=== PATIENT | female | born 1945 | race Caucasian/White ===

== ENCOUNTER 2017-03-21 23:20 | Inpatient (IN) | payer MEDICARE ==
[~2017-03-21] VITALS: Ht 162.6 cm; Wt 55.5 kg
[2017-03-21] MEDS ORDERED: LEVOTHYROXIN25 MC1 PO (23:40)
[2017-03-22 00:48] LABS: HEMATOCRIT 38.1 % (37.0-47.0); HEMOGLOBIN 13.9 g/dl (12.0-16.0); IMMATURE GRANULOCYTES 0.4 % (0.0-1.0); MEAN CELL VOLUME 85.4 fL CALC (80.0-100.0); MEAN CORPUSCULAR HGB 31.2 pG CALC (26.0-32.0); MEAN CORPUSCULAR HGB CONC 36.5 g/L CALC (32.0-36.0); NEUT# 4.21 thou/uL (2.00-7.15); RED BLOOD COUNT 4.46 mill/uL (4.20-5.60); RED CELL DISTRI WIDTH 11.6 % (11.5-15.5)
[2017-03-22 01:04] LABS: ALBUMIN 4.2 g/dL (3.2-5.0); ALKALINE PHOSPHATASE 67 u/l (38-126); AMYLASE 35 u/l (30-110); BILIRUBIN, TOTAL 0.8 mg/dL (0.0-1.4); BUN 10 mg/dL (8-23); BUN/CREATININE RATIO 20 (12-20 (CALC)); CALCIUM 8.7 mg/dL (8.4-10.2); CARBON DIOXIDE 23 mmol/l (22-30); CHLORIDE 83 mmol/l (95-108); CREATININE 0.5 mg/dL (0.5-1.0); GFR > 60 ML/MIN (>=60 (CALC)); GFR FOR AFR.AMER. > 60 ML/MIN (>=60 (CALC)); GLUCOSE 141 mg/dL (82-115); LIPASE 53 u/l (23-300); SGOT/AST 46 u/l (9-36); SGPT/ALT 46 u/l (11-66); TOTAL PROTEIN 6.7 g/dL (6.3-8.2)
[2017-03-22 01:09] LABS: ANION GAP 16 (6-22 (CALC)); SODIUM 118 mmol/l (137-146)
[2017-03-22 01:52] LABS: URINE BILIRUBIN - DIPSTICK NEGATIVE (NEGATIVE); URINE BLOOD DIPSTICK SMALL (NEGATIVE); URINE COLOR YELLOW; URINE GLUCOSE - DIPSTICK NEGATIVE (NEGATIVE); URINE KETONE NEGATIVE (NEGATIVE); URINE LEUK ESTERASE NEGATIVE (NEGATIVE); URINE NITRITE - DIPSTICK NEGATIVE (Negative); URINE PROTEIN - DIPSTICK NEGATIVE (NEG-TRACE); URINE UROBILINOGEN - DIPSTICK 0.2 E.U./dL (0.2)
[2017-03-22 01:53] LABS: URINE CLARITY CLEAR
[2017-03-22 02:03] LABS: TSH, 3RD GENERATION 4.49 uIU/mL (0.47 - 4.68)
[2017-03-22 02:05] LABS: URINE SQUAMOUS EPITHELIAL CELL RARE EPI/hpf (0-FEW); URINE WBC 0-2 WBC/hpf (0-5)
[2017-03-22 02:20] VITALS: BP 132/59
[2017-03-22 06:09] VITALS: BP 106/53
[2017-03-22 06:57] LABS: HEMATOCRIT 38.2 % (37.0-47.0); HEMOGLOBIN 13.6 g/dl (12.0-16.0); IMMATURE GRANULOCYTES 0.5 % (0.0-1.0); MEAN CELL VOLUME 87.2 fL CALC (80.0-100.0); MEAN CORPUSCULAR HGB 31.1 pG CALC (26.0-32.0); MEAN CORPUSCULAR HGB CONC 35.6 g/L CALC (32.0-36.0); NEUT# 3.42 thou/uL (2.00-7.15); RED BLOOD COUNT 4.38 mill/uL (4.20-5.60); RED CELL DISTRI WIDTH 11.8 % (11.5-15.5)
[2017-03-22 07:16] LABS: POTASSIUM 3.5 mmol/l (3.5-5.1)
[2017-03-22 10:00] VITALS: BP 116/50
[2017-03-22 11:58] LABS: INFLUENZA A NONE DETECTED (NONE DETECT); INFLUENZA B NONE DETECTED (NONE DETECT)
[2017-03-22 13:45] LABS: POTASSIUM 3.6 mmol/l (3.5-5.1)
[2017-03-22 16:02] VITALS: BP 130/64
[2017-03-22 20:31] VITALS: BP 106/63
[2017-03-23 00:15] VITALS: BP 121/66
[2017-03-23 04:00] VITALS: BP 94/58
[2017-03-23 06:36] LABS: HEMATOCRIT 38.6 % (37.0-47.0); HEMOGLOBIN 13.4 g/dl (12.0-16.0); IMMATURE GRANULOCYTES 0.4 % (0.0-1.0); MEAN CELL VOLUME 89.6 fL CALC (80.0-100.0); MEAN CORPUSCULAR HGB 31.1 pG CALC (26.0-32.0); MEAN CORPUSCULAR HGB CONC 34.7 g/L CALC (32.0-36.0); NEUT# 4.24 thou/uL (2.00-7.15); RED BLOOD COUNT 4.31 mill/uL (4.20-5.60); RED CELL DISTRI WIDTH 12.3 % (11.5-15.5)
[2017-03-23 07:17] LABS: ALBUMIN 3.5 g/dL (3.2-5.0); BUN 10 mg/dL (8-23); CALCIUM 8.8 mg/dL (8.4-10.2); CARBON DIOXIDE 27 mmol/l (22-30); CHLORIDE 100 mmol/l (95-108); CREATININE 0.8 mg/dL (0.5-1.0); GFR > 60 ML/MIN (>=60 (CALC)); GFR FOR AFR.AMER. > 60 ML/MIN (>=60 (CALC)); GLUCOSE 89 mg/dL (82-115); POTASSIUM 3.9 mmol/l (3.5-5.1); SODIUM 136 mmol/l (137-146)
[2017-03-23 08:46] VITALS: BP 106/60
[2017-03-23 11:29] VITALS: BP 130/56
[2017-03-23 15:50] VITALS: BP 132/70
[2017-03-23 19:35] VITALS: BP 137/72
[2017-03-24 00:05] VITALS: BP 144/79
[2017-03-24 05:00] VITALS: BP 129/72
[2017-03-24 06:41] LABS: HEMATOCRIT 35.8 % (37.0-47.0); HEMOGLOBIN 12.9 g/dl (12.0-16.0); IMMATURE GRANULOCYTES 0.3 % (0.0-1.0); MEAN CELL VOLUME 87.5 fL CALC (80.0-100.0); MEAN CORPUSCULAR HGB 31.5 pG CALC (26.0-32.0); NEUT# 2.2 thou/uL (2.00-7.15); RED BLOOD COUNT 4.09 mill/uL (4.20-5.60); RED CELL DISTRI WIDTH 12.1 % (11.5-15.5)
[2017-03-24 06:57] LABS: ANION GAP 13 (6-22 (CALC)); BUN 6 mg/dL (8-23); BUN/CREATININE RATIO 11 (12-20 (CALC)); CALCIUM 8.9 mg/dL (8.4-10.2); CARBON DIOXIDE 27 mmol/l (22-30); CHLORIDE 98 mmol/l (95-108); CREATININE 0.6 mg/dL (0.5-1.0); GFR > 60 ML/MIN (>=60 (CALC)); GFR FOR AFR.AMER. > 60 ML/MIN (>=60 (CALC)); GLUCOSE 102 mg/dL (82-115); MAGNESIUM 1.7 mg/dL (1.6-2.3); POTASSIUM 3.3 mmol/l (3.5-5.1); SODIUM 134 mmol/l (137-146)
[2017-03-24 09:08] VITALS: BP 152/85
[2017-03-24 11:39] VITALS: BP 150/77
[2017-03-24 17:36] VITALS: BP 146/74
[2017-03-24 18:10] VITALS: BP 141/78
[2017-03-25 00:01] VITALS: BP 157/77
[2017-03-25 05:08] LABS: HEMATOCRIT 35.3 % (37.0-47.0); HEMOGLOBIN 12.2 g/dl (12.0-16.0); IMMATURE GRANULOCYTES 0.2 % (0.0-1.0); MEAN CELL VOLUME 89.8 fL CALC (80.0-100.0); MEAN CORPUSCULAR HGB CONC 34.6 g/L CALC (32.0-36.0); NEUT# 2.4 thou/uL (2.00-7.15); RED BLOOD COUNT 3.93 mill/uL (4.20-5.60); RED CELL DISTRI WIDTH 12.2 % (11.5-15.5)
[2017-03-25 05:13] VITALS: BP 146/72
[2017-03-25 05:20] LABS: ANION GAP 13 (6-22 (CALC)); BUN 6 mg/dL (8-23); BUN/CREATININE RATIO 10 (12-20 (CALC)); CALCIUM 8.8 mg/dL (8.4-10.2); CARBON DIOXIDE 26 mmol/l (22-30); CHLORIDE 105 mmol/l (95-108); CREATININE 0.6 mg/dL (0.5-1.0); GFR > 60 ML/MIN (>=60 (CALC)); GFR FOR AFR.AMER. > 60 ML/MIN (>=60 (CALC)); GLUCOSE 92 mg/dL (82-115); POTASSIUM 3.8 mmol/l (3.5-5.1); SODIUM 139 mmol/l (137-146)
[2017-03-25 07:15] VITALS: BP 136/60
[2017-03-25] MEDS ORDERED: DOXYCYCL HYC100 M4 PO (10:37)
[2017-03-25] MEDS ORDERED: ROBITUSSIN200 MG/10 PO (10:38)
[2017-03-25] MEDS ORDERED: PROTONIX40 M2 PO (10:39)
[2017-03-25] MEDS ORDERED: ZOFRAN ODT4 MG PO (10:40)
== END 2017-03-25 12:59 | disposition home or self-care (01) | DRG 641 ==
LOC: ED 23:20 → ED-I 03-22 01:00 → ED 03-22 01:55 → ICU 03-22 01:56 → MS2 03-22 14:50
PROVIDERS: Emergency Medicine; Internal Medicine; Internal Medicine Nephrology; Nurse Practitioner Family; ADMIT Internal Medicine; ATTEND Internal Medicine
DX: E87.1 Hypo-osmolality and hyponatremia (principal); E86.0 Dehydration; J20.9 Acute bronchitis, unspecified; K21.9 Gastro-esophageal reflux disease without esophagitis; E03.9 Hypothyroidism, unspecified; R31.9 Hematuria, unspecified
CPT/HCPCS: S0164

== ENCOUNTER 2017-03-26 00:46 | Emergency (ER) | payer MEDICARE ==
[~2017-03-26] VITALS: Ht 162.6 cm; Wt 54.5 kg
[~2017-03-26 00:46] MED LIST: DOXYCYCL HYC100 M4 PO; LEVOTHYROXIN25 MC1 PO; PROTONIX40 M2 PO; ROBITUSSIN200 MG/10 PO; ZOFRAN ODT4 MG PO
[2017-03-26 01:18] LABS: HEMATOCRIT 38.9 % (37.0-47.0); HEMOGLOBIN 14.1 g/dl (12.0-16.0); IMMATURE GRANULOCYTES 0.4 % (0.0-1.0); MEAN CORPUSCULAR HGB 31.5 pG CALC (26.0-32.0); MEAN CORPUSCULAR HGB CONC 36.2 g/L CALC (32.0-36.0); NEUT# 3.38 thou/uL (2.00-7.15); RED BLOOD COUNT 4.47 mill/uL (4.20-5.60)
[2017-03-26 01:29] LABS: ALBUMIN 4.2 g/dL (3.2-5.0); ALKALINE PHOSPHATASE 94 u/l (38-126); ANION GAP 20 (6-22 (CALC)); BILIRUBIN, TOTAL 0.8 mg/dL (0.0-1.4); BUN 11 mg/dL (8-23); BUN/CREATININE RATIO 18 (12-20 (CALC)); CALCIUM 9.7 mg/dL (8.4-10.2); CARBON DIOXIDE 23 mmol/l (22-30); CHLORIDE 100 mmol/l (95-108); CREATININE 0.6 mg/dL (0.5-1.0); GFR > 60 ML/MIN (>=60 (CALC)); GFR FOR AFR.AMER. > 60 ML/MIN (>=60 (CALC)); GLUCOSE 112 mg/dL (82-115); POTASSIUM 3.4 mmol/l (3.5-5.1); SGOT/AST 55 u/l (9-36); SGPT/ALT 101 u/l (11-66); SODIUM 140 mmol/l (137-146)
[2017-03-26 01:42] LABS: MYOGLOBIN 33 ng/mL (0 - 62)
[2017-03-26 04:15] VITALS: BP 136/62
== END 2017-03-26 04:15 | disposition home or self-care (01) ==
LOC: ED 00:46
PROVIDERS: Emergency Medicine
DX: R00.2 Palpitations (principal); R00.0 Tachycardia, unspecified; E03.9 Hypothyroidism, unspecified